=== PATIENT | female | born 1985 | race Caucasian/White ===

== ENCOUNTER 2017-12-09 10:55 | Emergency (ER) | payer MEDICAID ==
[~2017-12-09] VITALS: Ht 172.7 cm; Wt 101.2 kg
[~2017-12-09 10:55] MED LIST: ATI0.5 PO; FLAGYL500 MG PO; IPRATROPIUM BROM3 M2 HHN; KETOROLAC TROME10 MG PO; METFORMIN HCL500 MG PO; MOT600 PO; PROAIR HFA0.09 MG/A1 INH; ZES5 PO
[2017-12-09 11:02] VITALS: Ht 172.7 cm; Wt 101.2 kg
[2017-12-09 12:54] VITALS: BP 115/71
== END 2017-12-09 12:54 | disposition home or self-care (01) ==
LOC: ED 10:55
DX: J06.9 Acute upper respiratory infection, unspecified (principal); J45.909 Unspecified asthma, uncomplicated; E11.9 Type 2 diabetes mellitus without complications; Z91.02 Food additives allergy status
CPT/HCPCS: J7512; Q0092

== ENCOUNTER 2018-02-25 12:21 | Emergency (ER) | payer MEDICAID ==
[~2018-02-25] VITALS: Ht 170.2 cm; Wt 104.3 kg
[2018-02-25 12:28] VITALS: Ht 170.2 cm; Wt 104.3 kg
[2018-02-25 15:05] VITALS: BP 121/71
== END 2018-02-25 15:05 | disposition home or self-care (01) ==
LOC: ED 12:21
DX: S93.402A Sprain of unspecified ligament of left ankle, initial encounter (principal); J45.909 Unspecified asthma, uncomplicated; E11.9 Type 2 diabetes mellitus without complications; Z91.018 Allergy to other foods; W22.8XXA Striking against or struck by other objects, initial encounter; X50.1XXA Overexertion from prolonged static or awkward postures, initial encounter; Y93.89 Activity, other specified; Y99.8 Other external cause status; Y92.89 Other specified places as the place of occurrence of the external cause

== ENCOUNTER 2018-04-05 11:36 | Emergency (ER) | payer MEDICAID ==
[~2018-04-05] VITALS: Ht 170.2 cm; Wt 106.1 kg
[2018-04-05 11:40] VITALS: BP 135/79; Ht 170.2 cm; Wt 106.1 kg
[2018-04-05 13:04] LABS: UA SPECIFIC GRAVITY >=1.030 (1.005-1.035); microscopic required? YES; urine erythrocyte 3+ (NEGATIVE)
== END 2018-04-05 13:15 | disposition home or self-care (01) ==
LOC: ED 11:36
PROVIDERS: Emergency Medicine
DX: D25.9 Leiomyoma of uterus, unspecified (principal); J45.909 Unspecified asthma, uncomplicated; E66.9 Obesity, unspecified; E11.9 Type 2 diabetes mellitus without complications; Z90.49 Acquired absence of other specified parts of digestive tract; Z91.018 Allergy to other foods
CPT/HCPCS: 82962; J1885

== ENCOUNTER 2018-09-13 07:25 | Emergency (ER) | payer MEDICAID ==
[~2018-09-13] VITALS: Ht 167.6 cm; Wt 104.8 kg
[2018-09-13 07:35] VITALS: Ht 167.6 cm; Wt 104.8 kg
[2018-09-13 08:07] LABS: BASOPHIL % 0.3 % (0-2); PLATELET COUNT 209 x10^3mcL (130-400); RED CELL DISTRIBUTION WIDTH 13.7 % (11.5-14.5)
[2018-09-13 08:12] LABS: CALCIUM 9.8 mg/dL (8.5-10.1); CARBON DIOXIDE 26.2 mmol/L (21-32); CHLORIDE SERUM 100 mmol/L (98-107); CREATININE SERUM 0.8 mg/dL (0.6-1.0); GFR1 > 60 mL/min; GLUCOSE SERUM 267 mg/dL (74-106); POTASSIUM SERUM 4.2 mmol/L (3.5-5.1); SODIUM SERUM 134 mmol/L (136-145)
[2018-09-13 08:18] LABS: ALBUMIN 3.8 g/dL (3.4-5.0); ALKALINE PHOSPHATASE 111 U/L (46-116); ALT/SGPT 74 U/L (14-59); AST/SGOT 33 U/L (15-37); BILIRUBIN TOTAL 0.4 mg/dL (0.20-1.00); LIPASE 178 IU/L (73-393)
[2018-09-13 08:21] LABS: TOTAL PROTEIN, SERUM 9.1 g/dL (6.4-8.2)
[2018-09-13 10:02] VITALS: BP 93/62
== END 2018-09-13 10:02 | disposition home or self-care (01) ==
LOC: ED 07:25
PROVIDERS: Emergency Medicine
DX: K52.9 Noninfective gastroenteritis and colitis, unspecified (principal); J45.909 Unspecified asthma, uncomplicated; E11.9 Type 2 diabetes mellitus without complications; Z91.018 Allergy to other foods; Z90.89 Acquired absence of other organs; Z98.890 Other specified postprocedural states
CPT/HCPCS: J1885; J7030; Q0162

== ENCOUNTER 2018-09-13 17:18 | Emergency (ER) | payer MEDICAID ==
[~2018-09-13] VITALS: Ht 167.6 cm; Wt 104.8 kg
[2018-09-13 17:52] VITALS: Ht 167.6 cm; Wt 104.8 kg
[2018-09-13 19:33] LABS: BASOPHIL % 0.3 % (0-2); PLATELET COUNT 189 x10^3mcL (130-400); RED CELL DISTRIBUTION WIDTH 13.5 % (11.5-14.5)
[2018-09-13 19:41] LABS: CALCIUM 9.1 mg/dL (8.5-10.1); CARBON DIOXIDE 27.1 mmol/L (21-32); CHLORIDE SERUM 102 mmol/L (98-107); CREATININE SERUM 0.8 mg/dL (0.6-1.0); GFR1 > 60 mL/min; GLUCOSE SERUM 177 mg/dL (74-106); POTASSIUM SERUM 4.2 mmol/L (3.5-5.1); SODIUM SERUM 137 mmol/L (136-145)
[2018-09-13 19:44] LABS: ALBUMIN 3.6 g/dL (3.4-5.0); ALKALINE PHOSPHATASE 100 U/L (46-116); ALT/SGPT 56 U/L (14-59); AST/SGOT 30 U/L (15-37); BILIRUBIN TOTAL 0.4 mg/dL (0.20-1.00); LIPASE 330 IU/L (73-393)
[2018-09-13 19:50] LABS: TOTAL PROTEIN, SERUM 8.5 g/dL (6.4-8.2)
[2018-09-13 20:37] LABS: UA SPECIFIC GRAVITY >=1.030 (1.005-1.035); microscopic required? YES; urine erythrocyte 3+ (NEGATIVE)
[2018-09-13 23:21] VITALS: BP 135/95
== END 2018-09-14 00:02 | disposition home or self-care (01) ==
LOC: ED 17:18
PROVIDERS: Emergency Medicine
DX: N39.0 Urinary tract infection, site not specified (principal); J45.909 Unspecified asthma, uncomplicated; E11.9 Type 2 diabetes mellitus without complications; Z98.890 Other specified postprocedural states; Z90.89 Acquired absence of other organs; Z91.018 Allergy to other foods
CPT/HCPCS: 87046; 87046-59; J1885; J2405; J7030

== ENCOUNTER 2018-12-29 11:13 | Emergency (ER) | payer MEDICAID ==
[~2018-12-29] VITALS: Ht 170.2 cm; Wt 101.6 kg
[2018-12-29 11:40] VITALS: Ht 170.2 cm; Wt 101.6 kg
[2018-12-29 13:42] VITALS: BP 118/66
== END 2018-12-29 13:39 | disposition home or self-care (01) ==
LOC: ED 11:13
DX: S39.011A Strain of muscle, fascia and tendon of abdomen, initial encounter (principal); J45.909 Unspecified asthma, uncomplicated; E11.9 Type 2 diabetes mellitus without complications; G89.29 Other chronic pain; Z90.89 Acquired absence of other organs; Z91.018 Allergy to other foods; Z98.890 Other specified postprocedural states; X50.0XXA Overexertion from strenuous movement or load, initial encounter; Y93.89 Activity, other specified; Y92.89 Other specified places as the place of occurrence of the external cause; Y99.8 Other external cause status
CPT/HCPCS: J1885

== ENCOUNTER 2018-12-31 07:07 | Emergency (ER) | payer MEDICAID ==
[~2018-12-31] VITALS: Ht 170.2 cm; Wt 102.6 kg
[2018-12-31 07:17] VITALS: Ht 170.2 cm; Wt 102.6 kg
[2018-12-31 08:08] VITALS: BP 147/80
== END 2018-12-31 08:08 | disposition home or self-care (01) ==
LOC: ED 07:07
DX: L02.411 Cutaneous abscess of right axilla (principal); L73.2 Hidradenitis suppurativa; J45.909 Unspecified asthma, uncomplicated; G89.29 Other chronic pain; M54.9 Dorsalgia, unspecified; F32.9 Major depressive disorder, single episode, unspecified; Z91.018 Allergy to other foods; Z90.89 Acquired absence of other organs
CPT/HCPCS: 82962; 90715; J0696

== ENCOUNTER 2019-02-20 19:59 | Emergency (ER) | payer MEDICAID ==
[~2019-02-20] VITALS: Ht 167.6 cm; Wt 98.4 kg
[2019-02-20 20:23] VITALS: Ht 167.6 cm; Wt 98.4 kg
[2019-02-20 21:30] LABS: BASOPHIL % 0.5 % (0-2); PLATELET COUNT 166 x10^3mcL (130-400); RED CELL DISTRIBUTION WIDTH 13.4 % (11.5-14.5)
[2019-02-20 23:20] VITALS: BP 129/73
== END 2019-02-20 23:20 | disposition home or self-care (01) ==
LOC: ED 19:59
PROVIDERS: Emergency Medicine
DX: N94.6 Dysmenorrhea, unspecified (principal); N83.202 Unspecified ovarian cyst, left side; J45.909 Unspecified asthma, uncomplicated; E11.9 Type 2 diabetes mellitus without complications; G89.29 Other chronic pain; F32.9 Major depressive disorder, single episode, unspecified; Z90.89 Acquired absence of other organs; Z91.018 Allergy to other foods
CPT/HCPCS: 36415

== ENCOUNTER 2020-03-10 09:10 | Emergency (ER) | payer OTHER ==
[~2020-03-10] VITALS: Ht 167.6 cm; Wt 96.2 kg
[2020-03-10 09:17] VITALS: Ht 167.6 cm; Wt 96.2 kg
[2020-03-10 10:33] VITALS: BP 106/56
== END 2020-03-10 10:33 | disposition home or self-care (01) ==
LOC: ED 09:10
DX: M25.561 Pain in right knee (principal); J45.909 Unspecified asthma, uncomplicated; E11.9 Type 2 diabetes mellitus without complications; Z98.890 Other specified postprocedural states; Z90.89 Acquired absence of other organs; Z98.51 Tubal ligation status; W10.8XXA Fall (on) (from) other stairs and steps, initial encounter; Y93.89 Activity, other specified; Y92.89 Other specified places as the place of occurrence of the external cause; Y99.0 Civilian activity done for income or pay

== ENCOUNTER 2020-03-17 12:10 | Emergency (ER) | payer OTHER ==
[~2020-03-17] VITALS: Ht 167.6 cm; Wt 97.5 kg
[2020-03-17 12:17] VITALS: BP 128/44; Ht 167.6 cm; Wt 97.5 kg
== END 2020-03-17 13:00 | disposition home or self-care (01) ==
LOC: ED 12:10
DX: S86.911D Strain of unspecified muscle(s) and tendon(s) at lower leg level, right leg, subsequent encounter (principal); J45.909 Unspecified asthma, uncomplicated; E11.9 Type 2 diabetes mellitus without complications; Z90.89 Acquired absence of other organs; Z91.018 Allergy to other foods; X58.XXXD Exposure to other specified factors, subsequent encounter

== ENCOUNTER 2020-10-30 09:27 | Emergency (ER) | payer OTHER ==
[~2020-10-30] VITALS: Ht 167.6 cm; Wt 94.8 kg
[2020-10-30 09:40] VITALS: Ht 167.6 cm; Wt 94.8 kg
[2020-10-30 10:46] LABS: PLATELET COUNT 165 x10^3mcL (130-400); RED CELL DISTRIBUTION WIDTH 12.5 % (11.5-14.5)
[2020-10-30 10:58] LABS: CALCIUM 9.2 mg/dL (8.5-10.1); CARBON DIOXIDE 23.3 mmol/L (21-32); CHLORIDE SERUM 101 mmol/L (98-107); CREATININE SERUM 0.7 mg/dL (0.6-1.0); GFR1 > 60 mL/min; GLUCOSE SERUM 342 mg/dL (74-106); POTASSIUM SERUM 4.4 mmol/L (3.5-5.1); SODIUM SERUM 136 mmol/L (136-145)
[2020-10-30 11:12] LABS: MAGNESIUM 2.1 mg/dL (1.8-2.4)
[2020-10-30 12:49] VITALS: BP 124/68
== END 2020-10-30 12:50 | disposition home or self-care (01) ==
LOC: ED 09:27
PROVIDERS: Emergency Medicine
DX: F41.9 Anxiety disorder, unspecified (principal); R55 Syncope and collapse; J45.909 Unspecified asthma, uncomplicated; E11.9 Type 2 diabetes mellitus without complications; Z90.89 Acquired absence of other organs; Z91.018 Allergy to other foods